=== PATIENT | male | born 1980 | race Asian ===

== ENCOUNTER 2023-08-08 18:50 | Emergency (ER) | payer OTHER ==
[2023-08-08 19:22] VITALS: BP 133/87; PULSE 62; RESP 16; TEMP 98.4; BMI 27.8
[2023-08-08] MEDS ORDERED: KETOROLAC TROMETHAMINE 60 MG/2 ML VIAL IM ONE (19:52)
[2023-08-08] MEDS ORDERED: KETOROLAC TROMETHAMINE 60 MG/2 ML VIAL ONE (19:52)
== END 2023-08-08 20:03 | disposition home or self-care (01) ==
LOC: FER 18:50
PROC: 3E0233Z Introduction of Anti-inflammatory into Muscle, Percutaneous Approach (ICD-10-PCS; principal; 2023-08-08)
DX: M54.50 Low back pain, unspecified (principal); S39.012A Strain of muscle, fascia and tendon of lower back, initial encounter; X50.3XXA Overexertion from repetitive movements, initial encounter; Y93.I9 Activity, other involving external motion
CPT/HCPCS: 99284-25